=== PATIENT | female | born 2000 | race Hispanic/Latino ===

== ENCOUNTER 2018-06-05 09:50 | Day surgery (SDC) | payer OTHER ==
[2018-06-04 14:04] VITALS: BMI 34.3
[2018-06-05] MEDS ORDERED: Midazolam HCl 2 mg/2 ml Vial ONE ×2 (11:14→11:50)
[2018-06-05 11:15] LABS: BHCG - Serum Negative (NEGATIVE); Pregs Control Background? CLEAR/WHITE (CLR/WHITE); Pregs Control Bar Appear? YES (CONTROL BAR)
[2018-06-05] MEDS ORDERED: Fentanyl 100 MCG/2 ML VIAL ONE ×3 (11:50→13:21)
[2018-06-05] MEDS ORDERED: Famotidine/PF 20 mg/2ml Vial ONE (11:50)
[2018-06-05] MEDS ORDERED: Ferric Subsulfate 8 ML BOT ONE (12:14)
--- NOTE | 2018-06-05 12:25 | OP ---
DATE OF SERVICE: 06/05/2018 PREOPERATIVE DIAGNOSES: Chronic tonsillitis and obstructive tonsillar hypertrophy. POSTOPERATIVE DIAGNOSES: Chronic tonsillitis and obstructive tonsillar hypertrophy. PROCEDURE PERFORMED: Tonsillectomy over 12 years of age. PROCEDURE IN DETAIL: After consent was obtained, the patient was identified, brought to the operatin g room, and placed on the operating table in the supine position. General endotracheal anesthesia an d intravenous access was obtained and we proceeded with positioning the patient for oropharyngeal shahla venice. Oropharyngeal exposure was obtained with a Jaz-Denilson mouth gag after a head drape was placed and secured with a towel clip. The Jaz-Denilson mouth gag was then susp ended from the Wilson tray and palatal elevation was achieved with a red rubber catheter. The right to nsil was addressed first. We used a curved Allis to grasp the tonsil and retract it medially as an a nterior pillar incision was made with a #12 blade. The retrotonsillar fascial plane was then establi shed and blunt dissection was performed with the suction cautery. Blood vessels were anticipated, id entified, and cauterized as they were encountered. Ultimately, dissection was carried to the posteri or tonsillar pillar mucosa which was incised hemostatically, as well as the base of tongue connection . The tonsil was then passed off as a specimen and bleeding points within the tonsillar bed were cauter ized under direct visualization. We subsequently turned our attention to the contralateral side, whe re using a similar technique, a near identical procedure was performed. Again, the tonsil was graspe d and retracted medially with a curved Allis as an anterior pillar incision was made with a #12 blade . The retrotonsillar fascial plane was established and while the anterior pillar was retracted media lly, the hemostatic blunt dissection of the tonsil with a suction cautery was performed with blood ve ssels anticipated, identified, and cauterized as they were encountered. Again, dissection continued to the base of tongue and posterior tonsillar pillar mucosa which was incised in a hemostatic fashion . The tonsillar beds were then carefully inspected and bleeding points were identified and cauterize d with a suction cautery. After this portion of the procedure, hemostasis was completely obtained. The patient's oral cavity was copiously irrigated with iced saline and subsequently suctioned. We th en used the red rubber catheter to suction the gastric contents and the patient was subsequently arou sed, awakened, and extubated without difficulty and transported to the recovery room in stable condit ion. There were no complications.
[2018-06-05] MEDS ORDERED: PROPOFOL 200 MG/20 ML VIAL ONE (13:19)
[2018-06-05] MEDS ORDERED: Succinylcholine Chloride 20 MG/ML 10 ml SYRINGE FS ONE (13:19)
[2018-06-05] MEDS ORDERED: Ondansetron HCl/PF 4 MG/2 ML Vial ONE (13:19)
[2018-06-05] MEDS ORDERED: Dexamethasone 20 MG/5 ML VIAL ONE (13:19)
[2018-06-05] MEDS ORDERED: Hydrocodone-Acetamin 15 ML UDCUP ONE (15:17)
== END 2018-06-05 15:55 | disposition home or self-care (01) ==
LOC: SDC 09:50
PROVIDERS: ATTEND Specialist
PROC: 0CTPXZZ Resection of Tonsils, External Approach (ICD-10-PCS; principal; 2018-06-05)
DX: J35.01 Chronic tonsillitis (principal); J45.909 Unspecified asthma, uncomplicated; F41.8 Other specified anxiety disorders; G47.30 Sleep apnea, unspecified; Z87.891 Personal history of nicotine dependence; Z79.899 Other long term (current) drug therapy
CPT/HCPCS: 36415; 84703; 85014; 88304; 96374; J1100; J2175; J2250; J2405; J2704; J3010; S0028